=== PATIENT | female | born 1945 ===

== ENCOUNTER → 2022-04-11 | Outpatient (CLI) | payer MEDICARE ==
[~2022-04-11] VITALS: Ht 147.3 cm; Wt 76.7 kg
[~2022-04-11] MED LIST: ATOR40TA28 PO; DILT180C52 PO; ESOM20CA31 PO; FLUT16H NASAL; HYDR25TA2 PO; TAMO10 PO; TIOT185 IH; TRAM50TA4 PO
[2022-04-11 09:26] VITALS: BP 129/76
== END | disposition home or self-care (01) ==
LOC: SRCNTR 09:11
PROVIDERS: ATTEND Internal Medicine
DX: J44.9 Chronic obstructive pulmonary disease, unspecified (principal); R06.00 Dyspnea, unspecified; I10 Essential (primary) hypertension; E66.9 Obesity, unspecified; K44.9 Diaphragmatic hernia without obstruction or gangrene; F17.200 Nicotine dependence, unspecified, uncomplicated; E78.5 Hyperlipidemia, unspecified; C50.919 Malignant neoplasm of unspecified site of unspecified female breast
CPT/HCPCS: G0463